=== PATIENT | female | born 1960 | race Caucasian/White ===

== ENCOUNTER → 2020-03-22 | Outpatient (CLI) | payer SELFPAY ==
--- NOTE | 2020-03-22 11:36 | Diagnostic Imaging Report ---
TECHNIQUE: Magnetic resonance imaging of the right SHOULDER was performed WITHOUT injected contrast. COMPARISON: None available. HISTORY: shoulder pain FINDINGS: MUSCLES AND TENDONS: Rotator Cuff: Tendons: Full thickness tear of the anterior supraspinatus tendon extending approximately 1.5 cm. Retraction approximately 1 cm. Underlying tendinosis with thickening of the infraspinatus tendon. Partial-thickness tearing of the subscapularis. Muscles: No focal muscle atrophy. Biceps Tendon: The long head of the biceps tendon is dislocated medially. Intra-articular tendinosis. GLENOHUMERAL JOINT: Glenoid Labrum: No displaced tear. Articular Cartilage: No focal defect. AC JOINT AND ACROMION: Mild hypertrophic degenerative changes of the acromioclavicular joint. The acromion is unremarkable. BONE: No focal or infiltrative bone marrow replacing abnormality. No acute fracture. SOFT TISSUES: Otherwise, the soft tissues appear unremarkable. IMPRESSION: Supraspinatus full-thickness tear of the anterior fibers with mild retraction. No atrophy. Subscapularis partial-thickness tearing with medial dislocation of the biceps tendon. Signed by: Dr. Mayank Pineda M.D. on 03/22/2020 11:33 AM
== END ==
LOC: MRI 10:18
PROVIDERS: ATTEND Family Medicine
DX: S46.011D Strain of muscle(s) and tendon(s) of the rotator cuff of right shoulder, subsequent encounter (principal)